=== PATIENT | female | born 1980 | race Caucasian/White ===

== ENCOUNTER 2017-08-31 17:10 | Emergency (ER) | payer BC ==
[~2017-08-31] VITALS: Ht 165.1 cm; Wt 118.0 kg
[~2017-08-31 17:10] MED LIST: METH750T2 PO; PRED5TAB PO; TRAM50 PO
[2017-08-31 17:12] VITALS: BP 157/107; PULSE 93; RESP 18; TEMP 98.1; O2SAT 97
--- NOTE | 2017-08-31 18:08 | PD ---
HPI Chief Complaint: Flank/Kidney Pain Time Seen by Provider: 18:01 Travel History International Travel<30 days: No Contact w/Intl Traveler<30days: No Traveled to known affect area: No History of Present Illness HPI 36-year-old female with no significant medical history presents emergency department for evaluation of right flank pain the radiates to her abdomen. Patient states this started yesterday. Patient has history of kidney stones and thinks she may have one. She went to urgent care prior to arrival here and was advised to come here to rule out obstructing renal calculi. Denies any urinary symptoms. No fever chills. Pain is a constant ache intermittently sharp. Patient has had C-sections but no other abdominal surgeries. She has no other symptoms to report. FORMERLY [facility] Past Medical History Kidney Stones: Yes Influenza Vaccination: No ?: Not LMP: 08/20/17 Past Surgical History Section: Yes (x2) Eye Surgery: Yes (x3) Family History Family Breast Cancer: Yes (great grandmother maternal) Family Myocardial Infarction: Yes (father) Social History Alcohol Use: Yes (rarely) Tobacco Use: No (e-cig) Substance Use: No Allergies-Medications (Allergen,Severity, Reaction): Coded Allergies: No Known Allergies (Unverified Adverse Reaction, Unknown, 08/31/17) Reported Meds & Prescriptions Reported Meds & Active Scripts Active No Active Prescriptions or Reported Medications Review of Systems Except as stated in HPI: all other systems reviewed are Neg Physical Exam Narrative GENERAL: Well-nourished female patient, ambulatory no acute distress. SKIN: Focused skin assessment warm/dry. HEAD: Atraumatic. Normocephalic. EYES: Pupils equal and round. No scleral icterus. No injection or drainage. ENT: No nasal bleeding or discharge. Mucous membranes pink and moist. NECK: Trachea midline. No JVD. CARDIOVASCULAR: Regular rate and rhythm. No murmur appreciated. RESPIRATORY: No accessory muscle use. Clear to auscultation. Breath sounds equal bilaterally. GASTROINTESTINAL: Abdomen soft, non-tender, nondistended. No guarding. No rebound tenderness. Hepatic and splenic margins not palpable. MUSCULOSKELETAL: No obvious deformities. No clubbing. No cyanosis. No edema. No CVA tenderness NEUROLOGICAL: Awake and alert. No obvious cranial nerve deficits. Motor grossly within normal limits. Normal speech. PSYCHIATRIC: Appropriate mood and affect; insight and judgment normal. Data Data Last Documented VS Vital Signs Date Time Temp Pulse Resp B/P (MAP) Pulse Ox O2 Delivery O2 Flow Rate FiO2 08/31/17 18:10 154/97 (116) 08/31/17 17:12 98.1 93 18 97 Orders Orders Iv Access Insert/Monitor (08/31/17 18:11) Complete Blood Count With Diff (08/31/17 18:11) Basic Metabolic Panel (Bmp) (08/31/17 18:11) Urinalysis - C+S If Indicated (08/31/17 18:11) Ed Urine Pregnancytest Poc (08/31/17 18:11) Ct Abd/Pel W/O Iv Contrast (08/31/17 ) Sodium Chlor 0.9% 1000 Ml Inj (Ns 1000 M (08/31/17 18:15) Ed Discharge Order (08/31/17 19:31) Labs Laboratory Tests Test 08/31/17 18:19 08/31/17 18:28 Urine Color YELLOW Urine Turbidity CLEAR Urine pH 5.5 Urine Specific [place] 1.030 Urine Protein TRACE mg/dL Urine Glucose (UA) NEG mg/dL Urine Ketones NEG mg/dL Urine Occult Blood NEG Urine Nitrite NEG Urine Bilirubin NEG Urine Urobilinogen LESS THAN 2.0 MG/DL Urine Leukocyte Esterase NEG Urine RBC 2 /hpf Urine WBC 3 /hpf Urine Squamous Epithelial Cells 2 /hpf Urine Mucus FEW /lpf Microscopic Urinalysis Comment CULT NOT INDICATED White Blood Count 10.6 TH/MM3 Red Blood Count 4.88 MIL/MM3 Hemoglobin 14.4 GM/DL Hematocrit 43.2 % Mean Corpuscular Volume 88.4 FL Mean Corpuscular Hemoglobin 29.6 PG Mean Corpuscular Hemoglobin Concent 33.4 % Red Cell Distribution Width 13.9 % Platelet Count 380 TH/MM3 Mean Platelet Volume 8.9 FL Neutrophils (%) (Auto) 69.8 % Lymphocytes (%) (Auto) 20.7 % Monocytes (%) (Auto) 8.1 % Eosinophils (%) (Auto) 0.9 % Basophils (%) (Auto) 0.5 % Neutrophils # (Auto) 7.4 TH/MM3 Lymphocytes # (Auto) 2.2 TH/MM3 Monocytes # (Auto) 0.9 TH/MM3 Eosinophils # (Auto) 0.1 TH/MM3 Basophils # (Auto) 0.1 TH/MM3 CBC Comment DIFF FINAL Differential Comment Blood Urea Nitrogen 15 MG/DL Creatinine 0.96 MG/DL Random Glucose 94 MG/DL Calcium Level 9.5 MG/DL Sodium Level 140 MEQ/L Potassium Level 4.4 MEQ/L Chloride Level 106 MEQ/L Carbon Dioxide Level 27.6 MEQ/L Anion Gap 6 MEQ/L Estimat Glomerular Filtration Rate 66 ML/MIN MDM Medical Decision Making Medical Screen Exam Complete: Yes Emergency Medical Condition: Yes Medical Record Reviewed: Yes Differential Diagnosis Renal calculi versus UTI versus STD versus ovarian cyst Narrative Course 36-year-old female presents emergency department for evaluation of right-sided flank/ lower abdominal pain. Patient appears without distress. Abdominal exam is benign. She has no CVA tenderness. Laboratory Tests Test 08/31/17 18:19 08/31/17 18:28 Urine Color YELLOW Urine Turbidity CLEAR Urine pH 5.5 Urine Specific [place] 1.030 Urine Protein TRACE mg/dL Urine Glucose (UA) NEG mg/dL Urine Ketones NEG mg/dL Urine Occult Blood NEG Urine Nitrite NEG Urine Bilirubin NEG Urine Urobilinogen LESS THAN 2.0 MG/DL Urine Leukocyte Esterase NEG Urine RBC 2 /hpf Urine WBC 3 /hpf Urine Squamous Epithelial Cells 2 /hpf Urine Mucus FEW /lpf Microscopic Urinalysis Comment CULT NOT INDICATED White Blood Count 10.6 TH/MM3 Red Blood Count 4.88 MIL/MM3 Hemoglobin 14.4 GM/DL Hematocrit 43.2 % Mean Corpuscular Volume 88.4 FL Mean Corpuscular Hemoglobin 29.6 PG Mean Corpuscular Hemoglobin Concent 33.4 % Red Cell Distribution Width 13.9 % Platelet Count 380 TH/MM3 Mean Platelet Volume 8.9 FL Neutrophils (%) (Auto) 69.8 % Lymphocytes (%) (Auto) 20.7 % Monocytes (%) (Auto) 8.1 % Eosinophils (%) (Auto) 0.9 % Basophils (%) (Auto) 0.5 % Neutrophils # (Auto) 7.4 TH/MM3 Lymphocytes # (Auto) 2.2 TH/MM3 Monocytes # (Auto) 0.9 TH/MM3 Eosinophils # (Auto) 0.1 TH/MM3 Basophils # (Auto) 0.1 TH/MM3 CBC Comment DIFF FINAL Differential Comment Blood Urea Nitrogen 15 MG/DL Creatinine 0.96 MG/DL Random Glucose 94 MG/DL Calcium Level 9.5 MG/DL Sodium Level 140 MEQ/L Potassium Level 4.4 MEQ/L Chloride Level 106 MEQ/L Carbon Dioxide Level 27.6 MEQ/L Anion Gap 6 MEQ/L Estimat Glomerular Filtration Rate 66 ML/MIN Last Impressions Abdomen/Pelvis CT 08/31/17 0000 Signed Impressions: Service Date/Time: Thursday, August 31, 2017 18:46 - CONCLUSION: 1. Probable right ovarian cystic mass measuring 7.2 x 6.8 x 6.4 cm. 2. No acute obstructive uropathy. 3. Hepatomegaly. Beltran Richmond MD Findings are discussed with the patient. She is advised follow-up with gynecology. She agrees to return immediately with acute worsening of symptoms. Diagnosis Primary Impression: Ovarian mass, right Referrals: [facility] Primary Care Physician Patient Instructions: General Instructions, Ovarian Cyst (ED) Additional Instructions: Follow-up with gynecology Return immediately with acute worsening of symptoms Med/Other Pt SpecificInfo: Prescription(s) given Scripts Hydrocodone-Acetaminophen ([place]) 5 Mg-325 Mg Tab 1 TAB PO Q6H Y for PAIN GREATER THAN 6, #6 TAB 0 Refills Prov: Baylee Loya 08/31/17 Ibuprofen (Ibuprofen) 800 Mg Tab 800 MG PO Q8H Y for Pain/Inflammation, #30 TAB 0 Refills Prov: Baylee Loya 08/31/17 Disposition: 01 DISCHARGE HOME Condition: Stable Baylee Loya August 31, 2017 18:08
[2017-08-31 18:10] VITALS: BP 154/97
[2017-08-31] MEDS ORDERED: SODIUM CHLOR 0.9% 1000 ML INJ 1,000 ML IV ONE (18:15)
[2017-08-31 18:46] LABS: AUTOMATED NEUTROPHIL # 7.4 TH/MM3 (1.8-7.7); BASOPHIL # 0.1 TH/MM3 (0-0.2); BASOPHIL % 0.5 % (0.0-2.0); EOSINOPHIL # 0.1 TH/MM3 (0-0.4); EOSINOPHIL % 0.9 % (0.0-4.0); HEMATOCRIT 43.2 % (35.0-46.0); HEMOGLOBIN 14.4 GM/DL (11.6-15.3); LYMPH % 20.7 % (9.0-44.0); LYMPHOCYTE # 2.2 TH/MM3 (1.0-4.8); MEAN CELL VOLUME 88.4 FL (80.0-100.0); MEAN CORPUSCULAR HEMOGLOBIN 29.6 PG (27.0-34.0); MEAN CORPUSCULAR HGB CONC 33.4 % (32.0-36.0); MEAN PLATELET VOLUME 8.9 FL (7.0-11.0); MONO % 8.1 % (0.0-8.0); MONOCYTE # 0.9 TH/MM3 (0-0.9); NEUT % 69.8 % (16.0-70.0); PLATELET COUNT 380 TH/MM3 (150-450); RED BLOOD COUNT 4.88 MIL/MM3 (4.00-5.30); RED CELL DISTRIBUTION WIDTH 13.9 % (11.6-17.2); WHITE BLOOD COUNT 10.6 TH/MM3 (4.0-11.0)
[2017-08-31 18:47] LABS: BILIRUBIN, URINE NEG (NEG); BLOOD, URINE NEG (NEG); GLUCOSE,URINE NEG (NEG); KETONE, URINE NEG (NEG); MUCUS URINE FEW /lpf (OCC); NITRITE,URINE NEG (NEG); PH, URINE 5.5 (5.0-8.5); SQUAMOUS EPITHELIAL CELL URINE 2 /hpf (0-5); URINE COLOR YELLOW (YELLW/STRAW); URINE LEUKOCYTE ESTERASE NEG (NEG)
--- NOTE | 2017-08-31 19:10 | RADRPT ---
EXAM DATE/TIME: 08/31/2017 18:46 [place] COMPARISON: No previous studies available for comparison. INDICATIONS : Right flank pain past 2 days with hematuria. ORAL CONTRAST: No oral contrast ingested. RADIATION DOSE: 11.40 CTDIvol (mGy) MEDICAL HISTORY : Renal calculi. SURGICAL HISTORY : None. ENCOUNTER: Initial ACUITY: 2 days PAIN SCALE: 7/10 LOCATION: Right flank TECHNIQUE: Volumetric scanning of the abdomen and pelvis was performed. Using automated exposure control and ad justment of the mA and/or kV according to patient size, radiation dose was kept as low as reasonably achievable to obtain optimal diagnostic quality images. DICOM format image data is available electro nically for review and comparison. FINDINGS: LOWER LUNGS: The visualized lower lungs are clear. LIVER: Liver is enlarged. There is no dilation of the biliary tree. No calcified gallstones. SPLEEN: Normal size without lesion. PANCREAS: Within normal limits. KIDNEYS: Normal in size and shape. There is no mass, stone, or hydronephrosis. ADRENAL GLANDS: Within normal limits. VASCULAR: There is no aortic aneurysm. BOWEL/MESENTERY: The stomach, small bowel, and colon demonstrate no acute abnormality. There is no free intraperitone al air or fluid. The appendix is normal. ABDOMINAL WALL: Within normal limits. RETROPERITONEUM: There is no lymphadenopathy. BLADDER: No wall thickening or mass. REPRODUCTIVE: There is a cystic mass within the midline of the anterior pelvis measuring 7.2 x 6.8 x 6.4 cm consist ent with probable right ovarian mass. INGUINAL: There is no lymphadenopathy or hernia. MUSCULOSKELETAL: Within normal limits for patient age. CONCLUSION: 1. Probable right ovarian cystic mass measuring 7.2 x 6.8 x 6.4 cm. 2. No acute obstructive uropathy. 3. Hepatomegaly. Beltran Richmond MD on August 31, 2017 at 19:03 Board Certified Radiologist. This report was verified electronically.
[2017-08-31 19:13] LABS: BICARBONATE 27.6 MEQ/L (21.0-32.0); CALCIUM 9.5 MG/DL (8.5-10.1); CREATININE 0.96 MG/DL (0.50-1.00)
[2017-08-31] MEDS ORDERED: NORC5TAB PO (19:35)
[2017-08-31] MEDS ORDERED: IBUP1TAB7 PO (19:35)
== END 2017-08-31 19:58 | disposition home or self-care (01) ==
LOC: NEPE 17:10
DX: N83.209 Unspecified ovarian cyst, unspecified side (principal); Z87.442 Personal history of urinary calculi; Z72.0 Tobacco use
CPT/HCPCS: 74176; 80048; 81001; 84703; 85025; 96360; 99284; J7030